=== PATIENT | female | born 1960 | race Caucasian/White ===

== ENCOUNTER 2025-04-24 23:57 | Emergency (ER) | payer OTHER ==
[2025-04-25 00:18] VITALS: TEMP 97.7; BMI 27.6
[2025-04-25] MEDS: SODIUM CHLORIDE 0.9% 500 ML INFUS.BAG IV ONE (00:53)
[2025-04-25] MEDS: LOSARTAN POTASSIUM 25 MG TABLET PO ONE (01:12)
[2025-04-25 01:27] LABS: ABSOLUTE IMMATURE GRANULOCYTES 0.01 x10^3/uL (0.0-0.031); BASOPHILS # 0.06 x10^3/uL (0.01-0.08); EOSINOPHIL % 3.8 % (0.7-5.8); EOSINOPHILS # 0.21 x10^3/uL (0.04-0.36); MCHC 32.9 g/dl (32.2-35.5); MEAN CELL VOLUME 94.5 fl (79.4-94.8); MEAN PLT VOLUME 10.2 fl (9.4-12.3); MONOCYTE # 0.53 x10^3/uL (0.24-0.86); MONOCYTE % 9.5 % (4.7-12.5); RDW 13.1 % (12.4-16.4)
[2025-04-25 01:46] LABS: GLUCOSE,RANDOM 138.0 mg/dL (74-106); TOT PROT 6.7 g/dl (6.4-8.2)
[2025-04-25 01:47] LABS: CO2 25.0 mmol/L (21-32)
[2025-04-25 01:49] LABS: ALK PHOS 71.0 U/L (40-150)
[2025-04-25 01:51] LABS: SGOT/AST 26.0 U/L (5-34); SGPT/ALT 24.0 U/L (0-55)
[2025-04-25 01:52] LABS: CREATININE 0.87 mg/dL (0.55-1.3)
[2025-04-25 03:07] VITALS: BP 156/83; PULSE 78; RESP 19
== END 2025-04-25 03:07 | disposition home or self-care (01) ==
LOC: JER 23:57
DX: I10 Essential (primary) hypertension (principal); R42 Dizziness and giddiness; R53.83 Other fatigue
CPT/HCPCS: 36415; 80053; 83735; 84484; 85025; 93005; 93010; 99284-25